=== PATIENT | female | born 1965 | race Hispanic/Latino ===

== ENCOUNTER → 2023-06-18 | Emergency (ER) | payer OTHER ==
[~2023-06-18] MED LIST: NA CHLORIDE 0.9% 1,000 ML ONE; PANTOPRAZOLE 40 MG INJ ONE
[2023-06-18 02:21] LABS: Absolute Lymphocytes (CBC) 3.3 K/uL (0.7-4.9); Hematocrit 33.4 % (36.0-45.0); Lymphocytes % 42.5 % (15.3-44.8); MCV 79.6 fL (80-100); MPV 10.4 fL (7.6-11.3); Platelets 182 thou/uL (152-406)
[2023-06-18 02:37] LABS: Albumin 3.7 g/dL (3.4-5.0); Bilirubin Total 0.5 mg/dL (0.2-1.0); Potassium 3.8 mEq/L (3.5-5.1); Protein, Total 7.6 g/dL (6.4-8.2)
[2023-06-18 03:04] LABS: Specific Gravity 1.012 (1.005-1.030); Urine Bilirubin NEGATIVE (Negative); Urine Blood Negative (Negative); Urine Clarity Clear (Clear); Urine Color Colorless (Yellow); Urine Glucose NEGATIVE (Negative); Urine Protein NEGATIVE (Negative); Urine Urobilinogen Normal (Normal); Urine pH 6.5 (5.0-7.0)
--- NOTE | 2023-06-18 05:25 | EDPHYS ---
Physician Documentation [facility] Name: Alesha Cavazos Age: 57 yrs Sex: Female : 1965 Arrival Date: 06/18/2023 Time: 00:57 Bed 13 Private MD: ED Physician Sumanth Ohara HPI: 06/18 05:18 This 57 yrs old Female presents to ER via Ambulatory with complaints of Rectal sp4 Bleeding. 05:18 57-year-old female presents with complaint of bright red blood per rectum for the past sp4 17 days almost daily. Patient reported bleeding is with bowel movements but there is no melena. Patient states she had sporadic rectal bleeds for the past 2 years but it has intensified in the last 17 days. 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 - Social history:: Smoking status: Patient denies any tobacco usage or history of. Patient/guardian denies using alcohol, street drugs. - Family history:: not pertinent. ROS: 05:18 Constitutional: Negative for fever, chills, and weight loss, positive rectal bleeds sp4 05:18 All other systems are negative, Exam: 05:18 Constitutional: This is a well developed, well nourished patient who is awake, alert, sp4 and in no acute distress. Head/Face: Normocephalic, atraumatic. Eyes: Pupils equal round and reactive to light, extra-ocular motions intact. Lids and lashes normal. Conjunctiva and sclera are not injected. Cornea within normal limits. Periorbital areas with no swelling, redness, or edema. ENT: Nares patent. No nasal discharge, no septal abnormalities noted. Tympanic membranes are normal and external auditory canals are clear. Oropharynx with no redness, swelling, or masses, exudates, or evidence of obstruction, uvula midline. Mucous membranes moist. Neck: Trachea midline, no thyromegaly or masses palpated, and no cervical lymphadenopathy. Supple, full range of motion without nuchal rigidity, or vertebral point tenderness. Chest/axilla: Normal chest wall appearance and motion. Nontender with no deformity. No lesions are appreciated. Cardiovascular: Regular rate and rhythm with a normal S1 and S2. No gallops, murmurs, or rubs. Normal PMI, no JVD. No pulse deficits. Respiratory: Lungs have equal breath sounds bilaterally, clear to auscultation and percussion. No rales, rhonchi or wheezes noted. No increased work of breathing, no retractions or nasal flaring. Abdomen/GI: Soft, non-tender, with normal bowel sounds. No distension or tympany. No guarding or rebound. No evidence of tenderness throughout. Digital rectal exam in the presence of female oceanographer geological -no blood, no melena, no fissure, no fistula, no hemorrhoid, no mass. No tenderness per rectum Back: No spinal tenderness. No costovertebral tenderness. There is sacral decubitus ulcer that is covered by the wound VAC. Skin: Warm, dry with normal turgor. Normal color with no rashes, no lesions, and no evidence of cellulitis. MS/ Extremity: Pulses equal, no cyanosis. Neurovascular intact. Full, normal range of motion. Neuro: Awake and alert, GCS 15, oriented to person, place, time, and situation. Cranial nerves II-XII grossly intact. Motor strength 5/5 in all extremities. Sensory grossly intact. Psych: Awake, alert, with orientation to person, place and time. Behavior, mood, and affect are within normal limits 05:18 Abdomen/GI: Rectal exam: is unremarkable, rectal tone normal, the exam is chaperoned by the nurse, Vital Signs: 01:19 BP 131 / 94; Pulse 77; Resp 17 S; Temp 98.1(TE); Pulse Ox 98% on R/A; Weight 106.59 kg lg3 (R); Height 5 ft. 5 in. (R); Pain 8/10; 04:30 BP 136 / 71; Pulse 81; Resp 16; Pulse Ox 98% ; nw1 05:30 BP 134 / 83; Resp 16; Pulse Ox 99% ; nw1 01:19 Body Mass Index 39.11 (106.59 kg, 165.1 cm) lg3 01:19 Pain Scale: Adult lg3 [place] Coma Score: 05:18 Eye Response: spontaneous(4). Motor Response: obeys commands(6). Verbal Response: sp4 oriented(5). Total: 15. MDM: 01:18 Patient medically screened. sp4 05:14 ED course: CLINICAL HISTORY: 57 years Female; rectal pain and bleeding; IV ONLYBed sp4 Name: 13 TECHNIQUE: CT of the abdomen and pelvis [with] intravenous contrast. All CT scans at this facility use dose modulation, iterative reconstruction, and/or weight based dosing when appropriate to reduce radiation dose to as low as reasonably achievable. COMPARISON: CT abdomen pelvis 09/27/2021 FINDINGS: Exam limited due to motion. Lower thorax: Lung bases are clear Abdomen: Stomach: Moderate hiatal hernia. Liver:No focal lesions. No intrahepatic ductal distention. Gallbladder:Nondistended Pancreas:Within normal limits Spleen:Within normal limits Right kidney:No hydronephrosis. No focal lesion. Left kidney:No hydronephrosis. Renal cysts noted. Adrenal glands:Within normal limits Vascular structures:Atherosclerosis of the abdominal aorta and major branches. Nodes:No lymphadenopathy by size criteria Pelvis: Small bowel:No significant distention. Appendix:Within normal limits Colon:No distention or acute pericolonic edema. Peritoneum: No free intraperitoneal fluid or air. Bones: No acute bone findings. Bladder: Unremarkable. Reproductive organs: No acute findings. IMPRESSION: 1. Exam limited due to motion. 2. No acute abdominopelvic findings. 3. Moderate hiatal hernia. Electronically signed by: Esteban Bronson MD 06/18/2023 03:40. 05:18 Differential diagnosis: hemorrhoids, fissure, abscess, condyloma. Data reviewed: vital sp4 signs, nurses notes, lab test result(s), CBC, electrolytes, hepatic panel, radiologic studies, CT scan. Consideration of Admission/Observation Escalation of care including admission/observation considered. ED course: Patient has basically normal CT abdomen and pelvis. Exam reveals no bleeding or melena . Patient will be referred to Dr. Gomes for in office evaluation for colonoscopy. 06/18 01:18 Order name: CBC with Diff; Complete Time: 05:13 sp4 06/18 01:18 Order name: CMP; Complete Time: 05:13 sp4 06/18 01:18 Order name: Lipase; Complete Time: 05:13 sp4 06/18 01:18 Order name: Urinalysis w/ reflexes; Complete Time: 05:13 sp4 06/18 01:18 Order name: PT-INR; Complete Time: 05:13 sp4 06/18 01:18 Order name: Type And Screen; Complete Time: 05:13 sp4 06/18 04:18 Order name: ABO/RH no charge; Complete Time: 05:13 EDOR 06/18 01:53 Order name: CT Abd/Pelvis - IV Contrast Only sp4 06/18 01:18 Order name: IV Saline Lock; Complete Time: 02:13 sp4 06/18 01:18 Order name: Labs collected and sent; Complete Time: : sp4 Administered Medications: 01:56 CANCELLED (Physician Discretion; M): [id number] mg IVP once sp4 02:01 Drug: NS 0.9% IV 1000 ml IV at 125 ml/hr continuous Route: IV; Rate: 125 ml/hr; Site: nw1 right wrist; Disposition Summary: 06/18/23 05:24 Discharge Ordered Problem: new sp4 Symptoms: have improved sp4 Condition: Stable sp4 Diagnosis - Intermittent rectal bleeding sp4 Followup: sp4 - With: Scott Gomes MD - When: 7 - 10 days - Reason: Recheck today's complaints Discharge Instructions: - Discharge Summary Sheet sp4 - Rectal Bleeding, [id number] sp4 Forms: - Patient Portal Instructions sp4 Prescriptions: - Protonix 40 mg Oral Tablet - take 1 tablet ORAL route once daily; 30 tablet; Refills: 0, Product Selection sp4 Permitted Signatures: Dispatcher [employer] Clarissa Maria RN RN lg3 Sumanth Ohara MD MD sp4 Keysha Cee RN RN nw1 Corrections: (The following items were deleted from the chart) 01:56 01:18 Pantoprazole IVP 80 mg IVP once ordered. sp4 sp4
--- NOTE | 2023-06-18 05:25 | ER ---
Nurse's Notes [facility] Name: Alesha Cavazos Age: 57 yrs Sex: Female : 1965 Arrival Date: 06/18/2023 Time: 00:57 Bed 13 Private MD: Diagnosis: Intermittent rectal bleeding Presentation: 06/18 01:19 Chief complaint: Spouse and/or significant other states: bright red bleeding from lg3 rectum X17 days with constipation. last BM 2300 with blood. reports pain to low back. pain 8/10 that comes and goes. Coronavirus screen: Client denies travel out of the [place] in the last 14 days. At this time, the client does not indicate any symptoms associated with coronavirus-19. Ebola Screen: No symptoms or risks identified at this time. Initial Sepsis Screen: Does the patient meet any 2 criteria? No. Patient's initial sepsis screen is negative. Does the patient have a suspected source of infection? No. Patient's initial sepsis screen is negative. Risk Assessment: Do you want to hurt yourself or someone else? Patient reports no desire to harm self or others. Onset of symptoms is unknown. 01:19 Method Of Arrival: Ambulatory lg3 01:19 Acuity: TREVOR 3 lg3 Triage Assessment: 01:22 General: Appears in no apparent distress. comfortable, Behavior is calm, cooperative. lg3 Pain: Complains of pain in low back area Pain does not radiate. EENT: No deficits noted. No signs and/or symptoms were reported regarding the EENT system. Neuro: No deficits noted. Shen Agitation-Sedation Scale (RASS): 0 - Alert and Calm Level of Consciousness is awake, alert, obeys commands, Oriented to person, place, time, situation. Cardiovascular: No deficits noted. Denies chest pain, shortness of breath, Capillary refill < 3 seconds Clubbing of nail beds is absent JVD is absent Patient's skin is warm and dry. Respiratory: No deficits noted. Airway is patent Respiratory effort is even, unlabored, Respiratory pattern is regular, symmetrical. GI: No deficits noted. Abdomen is round non-distended, obese, Reports constipation, rectal bleeding, bloody stool. : No deficits noted. No signs and/or symptoms were reported regarding the genitourinary system. Derm: No deficits noted. No signs and/or symptoms reported regarding the dermatologic system. Skin is intact, is healthy with good turgor, Skin is dry, Skin is normal, Skin temperature is warm. Musculoskeletal: No deficits noted. No signs and/or symptoms reported regarding the musculoskeletal system. Circulation, motion, and sensation intact. Range of motion: intact in all extremities. 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 - Social history:: Smoking status: Patient denies any tobacco usage or history of. Patient/guardian denies using alcohol, street drugs. - Family history:: not pertinent. Screenin:21 [facility] ED Fall Risk Assessment (Adult) History of falling in the last 3 months, nw1 including since admission No falls in past 3 months (0 pts) Confusion or Disorientation No (0 pts) Intoxicated or Sedated No (0 pts) Impaired Gait No (0 pts) Mobility Assist Device Used No (0 pt) Altered Elimination No (0 pt) Score/Fall Risk Level 0 - 2 = Low Risk Oriented to surroundings, Maintained a safe environment, Educated pt \T\ family on fall prevention, incl call for assistance when getting out of bed, Assessed \T\ reinforced patient's understanding of fall precautions, Provided non-skid footwear, Hourly rounding (assess needs \T\ fall precautionary measures) done, Used ambulatory aids as needed (educated on \T\ assisted with). Abuse screen: Denies threats or abuse. Denies injuries from another. Nutritional screening: No deficits noted. Tuberculosis screening: No symptoms or risk factors identified. Assessment: 01:34 Reassessment: Report received from ANGELA Romo. Assumed care at this time. nw1 02:11 Reassessment: PT STATES BLEEDING FROM RECTUM: BRIGHT RED BLOOD X 17 DAYS. RECTAL EXAM nw1 PERFORMED WITH THIS NURSE COTTON PULLER. PT BILL N/V. CALL LIGHT AT BESIDE. IV PLACED AND TOLERATED WELL. FAMILY AT BEDSIDE,. WILL CONTINUE TO MONITOR. 02:57 Reassessment: Pt to CT at this time. nw1 03:21 GI: Reports rectal bleeding, since 17 DAYS. nw1 Vital Signs: 01:19 BP 131 / 94; Pulse 77; Resp 17 S; Temp 98.1(TE); Pulse Ox 98% on R/A; Weight 106.59 kg lg3 (R); Height 5 ft. 5 in. (R); Pain 8/10; 04:30 BP 136 / 71; Pulse 81; Resp 16; Pulse Ox 98% ; nw1 05:30 BP 134 / 83; Resp 16; Pulse Ox 99% ; nw1 01:19 Body Mass Index 39.11 (106.59 kg, 165.1 cm) lg3 01:19 Pain Scale: Adult lg3 [place] Coma Score: 05:18 Eye Response: spontaneous(4). Motor Response: obeys commands(6). Verbal Response: sp4 oriented(5). Total: 15. ED Course: 01:12 Patient arrived in ED. gm2 01:18 Sumanth Ohara MD is Attending Physician. sp4 01:22 Triage completed. lg3 01:22 Arm band placed on right wrist. lg3 01:34 Keysha Cee, ANGELA is Primary Nurse. nw1 02:11 Served as a dynamics ax technical architect during rectal exam. Inserted saline lock: 20 gauge in right nw1 wrist, using aseptic technique. Blood collected. 02:13 CBC with Diff Sent. nw1 02:13 CMP Sent. nw1 02:13 Lipase Sent. nw1 02:13 Urinalysis w/ reflexes Sent. nw1 03:21 Patient has correct armband on for positive identification. Placed in gown. Bed in low nw1 position. Call light in reach. Side rails up X2. Adult w/ patient. Provided Education on: POC. 03:23 CT Abd/Pelvis - IV Contrast Only In Process Unspecified. EDMS 05:23 Scott Gomes MD is Referral Physician. sp4 05:30 IV discontinued, intact, bleeding controlled, No redness/swelling at site. Pressure nw1 dressing applied. Administered Medications: 01:56 CANCELLED (Physician Discretion; M): [id number] mg IVP once sp4 02:01 Drug: NS 0.9% IV 1000 ml IV at 125 ml/hr continuous Route: IV; Rate: 125 ml/hr; Site: nw1 right wrist; Medication: 03:21 VIS not applicable for this client. nw1 Outcome: 05:24 Discharge ordered by . sp4 05:30 Discharged to home ambulatory, nw1 05:30 Condition: stable 05:30 Discharge instructions given to patient, Instructed on discharge instructions, follow up and referral plans. Demonstrated understanding of instructions, follow-up care, medications, Prescriptions given X 1, 05:35 Patient left the ED. nw1 Signatures: Dispatcher [employer] EDMS Clarissa James, RN RN lg3 Sumanth Ohara MD MD sp4 Gabi Schultz 2 Keysha Cee RN RN nw1 Corrections: (The following items were deleted from the chart) 03:26 03:21 Reassessment: PT STATES BLEEDING FROM RECTUM: BRIGHT RED BLOOD X 17 DAYS. RECTAL nw1 EXAM PERFORMED WITH THIS NURSE COTTON PULLER. PT BILL N/V. CALL LIGHT AT BESIDE. IV PLACED AND TOLERATED WELL. FAMILY AT BEDSIDE,. WILL CONTINUE TO MONITOR. nw1
[2023-06-18 08:20] VITALS: BP 134/83; TEMP 98.1; O2SAT 99
--- NOTE | 2023-06-19 10:07 | RAD REPORT ---
EXAM DESCRIPTION: CT - Abdomen Pelvis W Contrast - 06/18/2023 6:46 am CLINICAL HISTORY: 57 years Female; rectal pain and bleeding; IV ONLY Bed Name: 13 TECHNIQUE: CT of the abdomen and pelvis with intravenous contrast. All CT scans at this facility use dose modulation, iterative reconstruction, and/or weight based dosi ng when appropriate to reduce radiation dose to as low as reasonably achievable. COMPARISON: CT abdomen pelvis 09/27/2021 FINDINGS: Exam limited due to motion. Lower thorax: Lung bases are clear Abdomen: Stomach: Moderate hiatal hernia. Liver: No focal lesions. No intrahepatic ductal distention. Gallbladder: Nondistended Pancreas: Within normal limits Spleen: Within normal limits Right kidney: No hydronephrosis. No focal lesion. Left kidney: No hydronephrosis. Renal cysts noted. Adrenal glands: Within normal limits Vascular structures: Atherosclerosis of the abdominal aorta and major branches. Nodes: No lymphadenopathy by size criteria Pelvis: Small bowel: No significant distention. Appendix: Within normal limits Colon: No distention or acute pericolonic edema. Peritoneum: No free intraperitoneal fluid or air. Bones: No acute bone findings. Bladder: Unremarkable. Reproductive organs: No acute findings. IMPRESSION: 1. Exam limited due to motion. 2. No acute abdominopelvic findings. 3. Moderate hiatal hernia. Electronically signed by: Esteban Bronson MD 06/18/2023 03:40 AM DATA SERVICES DEVELOPER Due to temporary technical issues with the PACS/Fluency reporting system, reports are being signed by the in house radiologists without review as a courtesy to insure prompt reporting. The interpreting radiologist is fully responsible for the content of the report.
== END ==
LOC: ER 00:57
DX: K62.5 Hemorrhage of anus and rectum (principal)
CPT/HCPCS: 85025; 36415; 86900; 86850; 85610; 86901; 81003; 83690; 80053; 74177; 99284; Q9967; C9113; J7030

== ENCOUNTER → 2023-07-09 | Emergency (ER) | payer OTHER ==
--- NOTE | 2023-07-10 00:09 | ER ---
Nurse's Notes [facility] Name: Alesha Cavazos Age: 57 yrs Sex: Female : 1965 Arrival Date: 07/09/2023 Time: 22:41 Bed 5 Private MD: Diagnosis: Subconjunctival hemorrhage, right eye Presentation: 07/09 22:57 Chief complaint: Patient states: Pt c/o bleeding in right eye that started approx 20 tl4 min ago. Pt c/o pain under the eye. Pt denies any changes in vision or trauma. Coronavirus screen: At this time, the client does not indicate any symptoms associated with coronavirus-19. Ebola Screen: No symptoms or risks identified at this time. Initial Sepsis Screen: Does the patient meet any 2 criteria? No. Patient's initial sepsis screen is negative. Does the patient have a suspected source of infection? No. Patient's initial sepsis screen is negative. Risk Assessment: Do you want to hurt yourself or someone else? Patient reports no desire to harm self or others. Onset of symptoms was July 09, 2023 at 22:30. 22:57 Method Of Arrival: Ambulatory tl4 22:57 Acuity: TREVOR 3 tl4 Triage Assessment: 23:00 General: Appears in no apparent distress. Behavior is calm, cooperative. Pain: tl4 Complains of pain in right eye. EENT: Reports pain in right eye. Neuro: No deficits noted. Cardiovascular: No deficits noted. Respiratory: No deficits noted. GI: No deficits noted. No signs and/or symptoms were reported involving the gastrointestinal system. : No deficits noted. No signs and/or symptoms were reported regarding the genitourinary system. Derm: No deficits noted. No signs and/or symptoms reported regarding the dermatologic system. Historical: - Allergies: 22:59 No Known Allergies; tl4 - Home Meds: 22:59 Omeprazole Oral [Active]; tl4 - PMHx: 22:59 acid reflux; tl4 - PSHx: 22:59 Colon; Total abdominal hysterectomy; tl4 - Immunization history:: Adult Immunizations unknown. - Social history:: Smoking status: Patient denies any tobacco usage or history of. Screenin:10 [facility] ED Fall Risk Assessment (Adult) History of falling in the last 3 months, jw7 including since admission No falls in past 3 months (0 pts) Score/Fall Risk Level 0 - 2 = Low Risk Oriented to surroundings, Maintained a safe environment, Educated pt \T\ family on fall prevention, incl call for assistance when getting out of bed. Abuse screen: Denies threats or abuse. Denies injuries from another. Nutritional screening: No deficits noted. Tuberculosis screening: No symptoms or risk factors identified. Assessment: 23:05 General: See Triage assessment. jw7 07/10 00:01 Reassessment: Patient appears in no apparent distress at this time. No changes from tm6 previously documented assessment. Patient and/or family updated on plan of care and expected duration. Pain level reassessed. Patient is alert, oriented x 3, equal unlabored respirations, skin warm/dry/pink. Vital Signs: 07/09 22:57 BP 139 / 90; Pulse 71; Resp 16; Temp 97.8; Pulse Ox 100% on R/A; Weight 106.14 kg; tl4 Height 5 ft. 5 in. ; Pain 5/10; 22:57 Body Mass Index 38.94 (106.14 kg, 165.1 cm) tl4 22:57 Pain Scale: Adult tl4 Visual Acuity: 07/10 00:00 Left Eye Visual acuity 20/25, ; Right Eye Visual acuity 20/40, ; Both Eyes Visual tm6 acuity 20/25; With Lenses; ED Course: 07/09 22:43 Patient arrived in ED. jj6 22:44 Lesli Corcoran PA-C is [facility]. sb4 22:44 Sumanth Ohara MD is Attending Physician. sb4 22:59 Triage completed. tl4 23:01 Arm band placed on right wrist. tl4 23:10 Patient has correct armband on for positive identification. Bed in low position. Call [facility] light in reach. 23:47 Facial Bones W/O Con CT In Process Unspecified. EDMS 07/10 00:01 Provided Education on: plan of care. Client placed on continuous cardiac and pulse tm6 oximetry monitoring. NIBP monitoring applied. Door closed. Noise minimized. Warm blanket given. 00:01 No provider procedures requiring assistance completed. tm6 00:09 Shalom Mccray MD is Referral Physician. sb4 00:16 Patient did not have IV access during this emergency room visit. intact, bleeding tm6 controlled, No redness/swelling at site. Pressure dressing applied. Administered Medications: No medications were administered Medication: 00:01 VIS not applicable for this client. tm6 Outcome: 00:09 Discharge ordered by . sb4 00:16 Discharged to home ambulatory, tm6 00:16 Condition: stable 00:16 Discharge instructions given to patient, family, Instructed on discharge instructions, follow up and referral plans. Demonstrated understanding of instructions, follow-up care, 00:16 Patient left the ED. tm6 Signatures: Dispatcher [employer] EDGenesis [email or web address] Lianne Mclain, RN RN jw7 Lesli Corcoran, PA-C PA-C sb4 Anibal Cortes RN RN tm6 Wolfgang Quan4
--- NOTE | 2023-07-10 00:09 | EDPHYS ---
Physician Documentation [facility] Name: Alesha Cavazos Age: 57 yrs Sex: Female : 1965 Arrival Date: 07/09/2023 Time: 22:41 Bed 5 Private MD: ED Physician Sumanth Ohara HPI: 07/09 23:27 This 57 yrs old Female presents to ER via Ambulatory with complaints of Eye sb4 Problem. 23:27 The patient is experiencing redness, The patient sustained None. to the right eye, sb4 caused by an unknown mechanism. Onset: The symptoms/episode began/occurred just prior to arrival. Patient does not utilize any form of vision correction. The patient has not experienced similar symptoms in the past. The patient has not recently seen a physician. Historical: - Allergies: 22:59 No Known Allergies; tl4 - Home Meds: 22:59 Omeprazole Oral [Active]; tl4 - PMHx: 22:59 acid reflux; tl4 - PSHx: 22:59 Colon; Total abdominal hysterectomy; tl4 - Immunization history:: Adult Immunizations unknown. - Social history:: Smoking status: Patient denies any tobacco usage or history of. ROS: 23:27 Constitutional: Negative for fever, chills, and weight loss, sb4 23:27 Eyes: Positive for pain, redness, 23:27 All other systems are negative, Exam: 23:28 Constitutional: This is a well developed, well nourished patient who is awake, alert, sb4 and in no acute distress. Head/Face: Normocephalic, atraumatic. 23:28 Eyes: Periorbital structures: appear normal, no acute changes, Pupils: equal, round, and reactive to light and accomodation, Extraocular movements: no acute changes, Conjunctiva: subconjunctival hemorrhage(s), seen in the right eye, at 9 o'clock, 07/10 00:08 Visual Acuity: I have reviewed the nursing documentation. sb4 Vital Signs: 07/09 22:57 BP 139 / 90; Pulse 71; Resp 16; Temp 97.8; Pulse Ox 100% on R/A; Weight 106.14 kg; tl4 Height 5 ft. 5 in. ; Pain 5/10; 22:57 Body Mass Index 38.94 (106.14 kg, 165.1 cm) tl4 22:57 Pain Scale: Adult tl4 Visual Acuity: 07/10 00:00 Left Eye Visual acuity 20/25, ; Right Eye Visual acuity 20/40, ; Both Eyes Visual tm6 acuity 20/25; With Lenses; MDM: 07/09 22:58 Patient medically screened. sb4 23:28 Differential diagnosis: Allergic conjunctivitis in right eye. subconjunctival sb4 hemorrhage. 07/10 00:08 Data reviewed: vital signs, nurses notes, radiologic studies, and as a result, I will sb4 discharge patient. Counseling: I had a detailed discussion with the patient and/or guardian regarding the historical points, exam findings, and any diagnostic results supporting the discharge/admit diagnosis, radiology results, to return to the emergency department if symptoms worsen or persist or if there are any questions or concerns that arise at home. 07/09 23:25 Order name: Facial Bones W/O Con CT sb4 07/09 23:28 Order name: Visual Acuity; Complete Time: 00:11 sb4 Administered Medications: No medications were administered Disposition: 04:22 Co-signature as Attending Physician, Sumanth Ohara MD I agree with the assessment sp4 and plan of care. I reviewed the patient's care provided by the Advanced Practice Provider and agree with the diagnosis and treatment plan. Disposition Summary: 07/10/23 00:09 Discharge Ordered Notes: Location: Home sb4 Problem: new sb4 Symptoms: are unchanged sb4 Condition: Stable sb4 Diagnosis - Subconjunctival hemorrhage, right eye sb4 Followup: sb4 - With: Shalom Mccray MD - When: As needed - Reason: Recheck today's complaints, Re-evaluation by your physician Discharge Instructions: - Discharge Summary Sheet sb4 - Subconjunctival Hemorrhage sb4 Forms: - Medication Reconciliation Form sb4 - Thank You Letter sb4 - Antibiotic Education sb4 - Prescription Opioid Use sb4 - Patient Portal Instructions sb4 - Leadership Thank You Letter sb4 Signatures: Dispatcher [employer] Lesli Valdez PA-C PA-C sb4 Sumanth Ohara MD MD sp4 Logdapanda, Wolfgang tl4
[2023-07-10 06:11] VITALS: BP 139/90; TEMP 97.8; O2SAT 100
--- NOTE | 2023-07-10 14:05 | RAD REPORT ---
EXAM DESCRIPTION: CT - Facial Bones W/ Mpr - 07/10/2023 7:00 am CLINICAL HISTORY: 57 years Female, right eye pain TECHNIQUE: Helical CT axial imaging of the facial bones without IV contrast. Multiplanar reconstruct ion. This exam was performed according to our departmental dose-optimization program, which include s automated exposure control, adjustment of the mA and/or kV according to patient size and/or use of iterative reconstruction technique. COMPARISON: None. FINDINGS: BONES: No acute fracture or dislocation. Unremarkable bilateral temporomandibular joints. Intact visualized cranium. SINUSES: Paranasal sinuses are clear. ORBITS: Bilateral globes and retrobulbar contents are unremarkable. SOFT TISSUES: No significant soft tissue swelling. No radiopaque foreign body. OTHER: Visualized mastoid air cells are clear. Visualized intracranial structures demonstrate no acut e abnormality. IMPRESSION: 1. No acute facial bone fracture. 2. Negative examination. Electronically signed by: Natanael Carver MD 07/09/2023 11:58 PM HEALTH CLAIMS EXAMINER Due to temporary technical issues with the PACS/Fluency reporting system, reports are being signed by the in house radiologist without review as a courtesy to ensure prompt reporting. The interpreting r adiologist is fully responsible for the content of the report.
== END ==
LOC: ER 22:41
DX: H11.31 Conjunctival hemorrhage, right eye (principal)
CPT/HCPCS: 70486; 76377